=== PATIENT | female | born 1980 | race Caucasian/White ===

== ENCOUNTER → 2020-03-11 15:10 | Outpatient (BNVA) | payer OTHER, SELFPAY | PROVIDERS: Family Provider Nurse Practitioner; Visit Provider Obstetrics & Gynecology | DX: R53.83 Other fatigue (principal); R76.8 Other specified abnormal immunological findings in serum; E03.9 Hypothyroidism, unspecified | CPT/HCPCS: 36415; 82306; 82330; 82607; 82728; 82747; 83735; 84439; 84443; 84481; 85025; 86376; 86800 ==